=== PATIENT | female | born 1990 | race Caucasian/White ===

== ENCOUNTER 2016-08-31 10:35 | Outpatient (CLI) | payer MEDICAID, OTHER ==
[~2016-08-31] VITALS: Ht 162.6 cm; Wt 83.5 kg
[2016-08-31 10:50] VITALS: BP 118/71
[2016-08-31 11:30] VITALS: BP 118/71
[2016-08-31 11:41] LABS: BILIRUBIN,URINE NEGATIVE (NEGATIVE); KETONES,URINE NEGATIVE (NEGATIVE); LEUKOCYTE ESTERASE ,URINE 3+ (NEGATIVE); NITRITE,URINE NEGATIVE (NEGATIVE); PH,URINE 8 (5-9); PROTEIN,URINE NEGATIVE (NEGATIVE); UROBILINOGEN,URINE NORMAL (NORMAL)
[2016-08-31 11:49] LABS: SQUAMOUS EPITHELIAL CELL,UR >50 /HPF; WBC,URINE 50-100 /HPF
--- NOTE | 2016-09-01 08:00 | Physician Query-Final Dx ---
STACY TANG 09/01/16 0800: Clinic Account Progress/Dx Physician Query: Please give diagnosis Date of Service Aug 31, 2016 at 10:35 ALEXIS CUNNINGHAM DO 09/01/16 0827: Clinic Account Progress/Dx DIAGNOSIS: Diagnosis 28 week IUP Uterine contractions STACY TANG Sep 01, 2016 08:00 ALEXIS CUNNINGHAM DO Sep 01, 2016 08:27
== END 2016-08-31 13:36 | disposition home or self-care (01) ==
LOC: DELPENDDIS → EDBD 10:35 → WSo 10:35 → LDRP 10:35 → WSo 13:36
PROVIDERS: ATTEND Obstetrics & Gynecology
DX: O47.03 False labor before 37 completed weeks of gestation, third trimester (principal); Z3A.28 28 weeks gestation of pregnancy
CPT/HCPCS: 80306; 81000; 87088; 99213